=== PATIENT | female | born 1990 | race Caucasian/White ===

== ENCOUNTER 2022-11-18 10:26 | Emergency (ER) | payer OTHER, SELFPAY ==
[2022-11-18 10:33] VITALS: BP 153/89; PULSE 85; RESP 16; TEMP 36.9; O2SAT 100
--- NOTE | 2022-11-18 10:40 | ED.URI ---
HPI - URI/Sore Throat General Chief Complaint: Upper Respiratory Infection Stated Complaint: Eye Problem Source: patient and RN notes reviewed History of Present Illness HPI Narrative: 32-year-old female presents to urgent care today complaining sore throat and eye pain. Patient stated that 3 days ago she developed a sore throat with a dry cough. Since then the cough has progressed through productive cough when she is coughing yellow and green sputum. Patient stated that yesterday her left eye became red with discharge. Patient denies any vision changes. This morning the redness has migrated to her right eye with discharge as well. Patient states that she has sinus pressure and headache. Patient stated she might a fever about 3 days ago but has not had 1 since. Patient states she has ear fullness but denies any pain in her years. Patient states her son was recently diagnosed with allergic conjunctivitis and believes she might have gotten out from him. Patient denies any chest pain or shortness of breath. Patient denies any nausea vomiting diarrhea. Related Data Home Medications Medication Instructions Recorded Confirmed lisinopril 10 mg tablet 10 mg PO DAILY 11/18/22 11/18/22 Allergies Allergy/AdvReac Type Severity Reaction Status Date / Time Penicillins Allergy Unknown Anaphylaxis Verified 11/18/22 10:49 Review of Systems Review of Systems: Pertinent positives and pertinent negatives per HPI. PMFSH Comments At the time of my signature, I reviewed and agree with the nursing past medical, surgical, social, and family history. There is no relevant family history pertinent to the patient complaint. Exam Narrative: GENERAL: This is a well-nourished, well-developed patient, in no apparent distress. HEAD: normocephalic, atraumatic. EYES: PERRL. Sclera clear/white. Vision is grossly intact. Conjunctiva is injected bilaterally. Exudate is present. EARS: External ears normal, auditory canals clear and without drainage, TMs normal without perforation. Hearing grossly intact. NOSE: External nose normal with no obvious nasal discharge, nares without redness, no rhinorrhea. SINUSES: Maxillary sinus tenderness present. THROAT: Mucous membranes moist, mild erythema to the posterior oropharynx. Tonsils 2+, uvula midline. NECK: Anterior neck tender with anterior cervical lymphadenopathy. No masses or thyromegaly. CARDIOVASCULAR: Regular rate and rhythm without murmurs, gallops, or rubs. RESPIRATORY: Clear to auscultation. Breath sounds equal bilaterally. No wheezes, rales, or rhonchi. GASTROINTESTINAL: Abdomen soft, non-tender, nondistended. Bowel sounds are active. No hepato-splenomegaly, or palpable masses. No guarding. SKIN: warm, intact with no suspicious lesions or rash, good texture and turgor. NEURO: awake, alert, and oriented to person, place and time. There were no obvious focal neurologic abnormalities. EXTREMITIES: No clubbing, cyanosis, or edema. No joint tenderness, effusion, or edema noted. Course Course Level of Care: Express Care Visit Vital Signs Vital signs: Vital Signs Temperature 98.4 F 11/18/22 10:33 Pulse Rate 85 11/18/22 10:33 Respiratory Rate 16 11/18/22 10:33 Blood Pressure 153/89 H 11/18/22 10:33 Pulse Oximetry 100 11/18/22 10:33 Oxygen Delivery Room Air 11/18/22 10:33 Temperature 98.4 F 11/18/22 10:33 Pulse Rate 85 11/18/22 10:33 Respiratory Rate 16 11/18/22 10:33 Blood Pressure 153/89 H 11/18/22 10:33 Pulse Oximetry 100 11/18/22 10:33 Oxygen Delivery Room Air 11/18/22 10:33 Reviewed MDM - URI/Sore Throat MDM Narrative Medical decision making narrative: Your exam today shows Conjunctivitis, You have been given a prescription for eye drops. Use the eye drops as instructed. If you are not better in two (2) days, you need to follow up with an talent acquisition associate. Do not rub the eye or put anything else in the eye, this can cause abrasions (scratc
== END 2022-11-18 11:20 | disposition home or self-care (01) ==
PROVIDERS: Emergency Provider Nurse Practitioner Family
DX: J06.9 Acute upper respiratory infection, unspecified (principal); H10.33 Unspecified acute conjunctivitis, bilateral
CPT/HCPCS: 87081; 87880; 99203; G0463

== ENCOUNTER 2023-05-08 08:14 | Emergency (ER) | payer OTHER, SELFPAY ==
--- NOTE | 2023-05-08 08:22 | ED.URI ---
HPI - URI/Sore Throat General Chief Complaint: Eye Problems Stated Complaint: aches/eye/throat Source: patient and RN notes reviewed Mode of arrival: ambulatory Limitations: no limitations History of Present Illness HPI Narrative: Patient is a 32-year-old female who presents to the [facility] today with complaints left eye redness and drainage. Patient states that she woke up this morning with her eye matted shut. She noted a yellow/ green drainage. Denies visual disturbance. Denies injury to the eye. Patient also reports some mild congestion. Denies recent fever. Related Data Home Medications Medication Instructions Recorded Confirmed lisinopril 10 mg tablet 10 mg PO DAILY 11/18/22 05/08/23 Allergies Allergy/AdvReac Type Severity Reaction Status Date / Time Penicillins Allergy Unknown Anaphylaxis Verified 05/08/23 08:27 Review of Systems Review of Systems: CONSTITUTIONAL: Denies fever, chills, or sweats. EYES: Denies visual changes. Reports left eye redness and discharge. ENT: Denies otalgia and sore throat CARDIOVASCULAR: Denies chest pain, palpitations, or edema. RESPIRATORY: Denies cough or dyspnea. GASTROINTESTINAL: Denies abdominal pain, nausea, vomiting, or diarrhea. GENITOURINARY: Denies dysuria or hematuria. SKIN: Denies rash or itching. MUSCULOSKELETAL: Denies back pain, joint pain, or myalgia. NEUROLOGIC: Denies headache, numbness, or weakness. Pertinent positives per HPI. PMFSH Comments At the time of my signature, I reviewed and agree with the nursing past medical, surgical, social, and family history. There is no relevant family history pertinent to the patient complaint. Exam Narrative: GENERAL: This is a well-nourished, well-developed patient, in no apparent distress. HEAD: normocephalic, atraumatic. EYES: PERRL. Vision is grossly intact. Left sclera injected with notable yellow/green drainage. Right sclera clear/white. EARS: External ears normal, auditory canals clear and without drainage, TMs normal without perforation. Hearing grossly intact. NOSE: External nose normal with no obvious nasal discharge, nares without redness, no rhinorrhea. THROAT: Mucous membranes moist, posterior pharynx clear. NECK: Neck supple, non-tender without lymphadenopathy, masses or thyromegaly. CARDIOVASCULAR: Regular rate and rhythm without murmurs, gallops, or rubs. RESPIRATORY: Clear to auscultation. Breath sounds equal bilaterally. No wheezes, rales, or rhonchi. GASTROINTESTINAL: Abdomen soft, non-tender, nondistended. Bowel sounds are active. No hepato-splenomegaly, or palpable masses. No guarding. SKIN: warm, intact with no suspicious lesions or rash, good texture and turgor. NEURO: awake, alert, and oriented to person, place and time. There were no obvious focal neurologic abnormalities. EXTREMITIES: No clubbing, cyanosis, or edema. No joint tenderness, effusion, or edema noted. BACK: Nontender without deformity or crepitance. No flank tenderness. Course Course Level of Care: Express Care Visit Vital Signs Vital signs: Vital Signs Temperature 97.5 F L 05/08/23 08:24 Pulse Rate 82 05/08/23 08:24 Respiratory Rate 20 05/08/23 08:24 Blood Pressure 154/103 H 05/08/23 08:24 Pulse Oximetry 97 05/08/23 08:24 Oxygen Delivery Room Air 05/08/23 08:24 Temperature 97.5 F L 05/08/23 08:28 Pulse Rate 82 05/08/23 08:28 Respiratory Rate 20 05/08/23 08:28 Blood Pressure 154/103 H 05/08/23 08:28 Pulse Oximetry 97 05/08/23 08:28 Oxygen Delivery Room Air 05/08/23 08:28 Reviewed MDM - URI/Sore Throat MDM Narrative Medical decision making narrative: Your exam today shows Conjunctivitis, You have been given a prescription for eye drops. Use the eye drops as instructed. If you are not better in two (2) days, you need to follow up with an bindery operator. Do not rub the eye or put anything else in the eye, this can cause abrasions (scratches) on the eye or lead to vision
[2023-05-08 08:24] VITALS: BP 154/103; PULSE 82; RESP 20; TEMP 36.4; O2SAT 97
[2023-05-08 08:28] VITALS: BP 154/103; PULSE 82; RESP 20; TEMP 36.4; O2SAT 97
== END 2023-05-08 08:43 | disposition home or self-care (01) ==
PROVIDERS: Emergency Provider Nurse Practitioner
DX: H10.32 Unspecified acute conjunctivitis, left eye (principal); I10 Essential (primary) hypertension
CPT/HCPCS: 99213; G0463

== ENCOUNTER 2024-03-20 14:09 | Emergency (ER) | payer OTHER, SELFPAY ==
[2024-03-20 14:20] VITALS: BP 118/77; RESP 16; TEMP 36.8; O2SAT 99
--- NOTE | 2024-03-20 14:37 | ED.URI ---
HPI - URI/Sore Throat General Chief Complaint: Upper Respiratory Infection Stated Complaint: cough/throat/headache/nausea Time Seen by Provider: 03/20/24 14:37 Source: patient Mode of arrival: ambulatory Limitations: no limitations History of Present Illness HPI Narrative: 33-year-old female presents with complaint of sore throat, fatigue, congestion, body aches and chills for 3 days. Afebrile. Denies nausea vomiting diarrhea. All systems reviewed and negative except as noted above. Related Data Home Medications Medication Instructions Recorded Confirmed lisinopril 10 mg tablet 10 mg PO DAILY 11/18/22 03/20/24 Allergies Allergy/AdvReac Type Severity Reaction Status Date / Time Penicillins Allergy Unknown Anaphylaxis Verified 05/08/23 08:27 Review of Systems Review of Systems: CONSTITUTIONAL: Denies fever. Reports chills, or sweats. EYES: Denies visual changes, redness, or discharge. ENT: Reports rhinorrhea, congestion, sore throat. Denies otalgia. CARDIOVASCULAR: Denies chest pain, palpitations, or edema. RESPIRATORY: Denies cough or dyspnea. GASTROINTESTINAL: Denies abdominal pain, nausea, vomiting, or diarrhea. GENITOURINARY: Denies dysuria or hematuria. SKIN: Denies rash or itching. MUSCULOSKELETAL: Denies back pain, joint pain. Reports myalgia. NEUROLOGIC: Denies headache, numbness, or weakness. PSYCHIATRIC: Denies anxiety or depression. All other systems reviewed are negative, except as documented in HPI. PMFSH Comments At time of signature, agree with nursing past medical, surgical, social and family history. There is no relevant family history pertinent to the presenting complaint. Exam Narrative: GENERAL: This is a well-nourished, well-developed patient, in no apparent distress. HEAD: normocephalic, atraumatic. EYES: PERRL. Sclera clear/white. Vision is grossly intact. EARS: External ears normal, auditory canals clear and without drainage, TMs normal without perforation. Hearing grossly intact. NOSE: External nose normal with Clear nasal drainage, mild congestion THROAT: Mucous membranes moist, erythema and swelling to posterior pharynx without exudates. NECK: Neck supple, non-tender without lymphadenopathy, masses or thyromegaly. CARDIOVASCULAR: Regular rate and rhythm without murmurs, gallops, or rubs. RESPIRATORY: Clear to auscultation. Breath sounds equal bilaterally. No wheezes, rales, or rhonchi. SKIN: warm, Dry, intact with no suspicious lesions or rash, good texture and turgor. NEURO: awake, alert, and oriented to person, place and time. There were no obvious focal neurologic abnormalities. EXTREMITIES: No joint tenderness, effusion, or edema noted. Course Course Level of Care: Express Care Visit Vital Signs Vital signs: Vital Signs Temperature 36.8 C 03/20/24 14:20 Respiratory Rate 16 03/20/24 14:20 Blood Pressure 118/77 03/20/24 14:20 Pulse Oximetry 99 03/20/24 14:20 Oxygen Delivery Room Air 03/20/24 14:20 Temperature 36.8 C 03/20/24 14:20 Respiratory Rate 16 03/20/24 14:20 Blood Pressure 118/77 03/20/24 14:20 Pulse Oximetry 99 03/20/24 14:20 Oxygen Delivery Room Air 03/20/24 14:20 reviewed MDM - URI/Sore Throat MDM Narrative Medical decision making narrative: negative strep, COVID and influenza. Will prescribe antibiotic today due to patient's symptoms and exam findings. Patient agrees with plan of care. Patient is aware of diagnosis, understands and agrees to treatment plan. Anticipatory guidance given. Patient agrees to follow-up as directed and is aware of reasons to seek care at the emergency department. Portions of this record may have been created with voice recognition software Differential Diagnosis Differential diagnosis: Likely upper respiratory infection, sinusitis, viral infection and pharyngitis Discharge Plan Discharge Clinical Impression: Acute pharyngitis Qualifiers: Pharyngitis/tonsil
[2024-03-20 15:21] LABS: EDCOVIDSCREEN Negative (Negative); EDINFLUASCREEN Negative (Negative); EDINFLUBSCREEN Negative (Negative)
[2024-03-20 15:22] LABS: EDSTREPNEGPOS1 Negative (Negative)
== END 2024-03-20 14:52 | disposition home or self-care (01) ==
PROVIDERS: Emergency Provider Nurse Practitioner Family
DX: J02.9 Acute pharyngitis, unspecified (principal); Z20.822 Contact with and (suspected) exposure to COVID-19
CPT/HCPCS: 87081; 87426; 87804; 87880; 99213; G0463